=== PATIENT | male | born 1995 | race Caucasian/White ===

== ENCOUNTER 2025-02-25 17:48 | Emergency (ER) | payer SELFPAY ==
[~2025-02-25] VITALS: Ht 180.3 cm; Wt 109.1 kg
[2025-02-25 17:56] VITALS: TEMP 97.5
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
[2025-02-25 18:36] VITALS: BP 142/98; PULSE 96; RESP 16; O2SAT 99
== END 2025-02-25 18:37 | disposition home or self-care (01) ==
LOC: ER 17:49
DX: Z00.00 Encounter for general adult medical examination without abnormal findings (principal)
CPT/HCPCS: 99283